=== PATIENT | male | born 1955 | race Hispanic/Latino ===

== ENCOUNTER 2017-12-15 05:58 | Day surgery (SDC) | payer OTHER ==
[2017-12-15] MEDS ORDERED: WATER FOR IRRIG STERILE IR ONE (07:13)
[2017-12-15] MEDS ORDERED: WATER FOR IRRIG STERILE ONE (07:14)
--- NOTE | 2017-12-15 07:27 | Anesthesia Consultation ---
Anesthesia Consult and Med Hx Date of service: 12/15/17 - Airway Anesthetic Teeth Evaluation: Poor (multiple chipped teeth, missing fillings) ROM Head & Neck: Adequate Mental/Hyoid Distance: Adequate Mallampati Class: Class III Intubation Access Assessment: Possibly Difficult - Pre-Operative Health Status ASA Pre-Surgery Classification: ASA3 Proposed Anesthetic Plan: MAC - Pulmonary Hx Smoking: No Hx Asthma: No Hx Sleep Apnea: No - Cardiovascular System Hx Hypertension: Yes Hx Peripheral Vascular Disease: Yes (venous insufficiency LEs) - Central Nervous System Hx Seizures: No CVA: No Hx Psychiatric Problems: No - Gastrointestinal Hx Gastroesophageal Reflux Disease: No - Endocrine Hx Renal Disease: No Hx Liver Disease: No Hx Insulin Dependent Diabetes: Yes (Also takes Metformin) - Hematic Hx Anemia: Yes - Other Systems Hx Alcohol Use: Yes (BEER OCCASIONALLY) Hx Cancer: No Hx Obesity: Yes (BMI 39.5)
--- NOTE | 2017-12-15 07:27 | Anesthesia Day of Surgery ---
Anesthesia Day of Surgery - Day of Surgery Patient Examined: Yes Patient H&P Reviewed: Yes Patient is NPO: Yes Beta Blockers: Yes
[2017-12-15] MEDS ORDERED: DIPRIVAN 10 MG/ML IV ONE ×2 (07:34→07:35)
[2017-12-15] MEDS ORDERED: XYLOCAINE 1% 20 mL ONE (07:36)
[2017-12-15] MEDS ORDERED: NACL 0.9% 1000 ML 1,000 ML IV SCH (08:00)
--- NOTE | 2017-12-15 08:19 | Short Stay Summary ---
Short Stay Documentation - Allergies and Medications Current Medications: Allergies No Known Allergies Allergy (Verified 02/25/16 10:08) Home Medications Medication Instructions Recorded Confirmed Last Taken Type AtorvaSTATin [Lipitor] 20 mg PO QPM 02/19/16 12/15/17 12/14/17 History Carvedilol [Coreg] 25 mg PO BID 02/19/16 12/15/17 09/24/16 History Insulin Glargine [Lantus VIAL] 28 units SQ QHS 02/19/16 12/15/17 12/14/17 History Latanoprost 0.005% [Xalatan 0.005%] 1 drop OP QPM 02/19/16 12/15/17 12/14/17 History Levobunolol 0.5%(Nf) [Betagan (Nf)] 1 drops OP BID 02/19/16 12/15/17 09/23/16 History Lisinopril/Hydrochlorothiazide 1 tab PO QDAY 02/19/16 12/15/17 12/15/17 History [Zestoretic 20-12.5 mg] Metformin HCl [Glucophage] 1,000 mg PO BID 02/19/16 12/15/17 12/14/17 History Spironolactone [Aldactone] 25 mg PO QDAY 02/19/16 12/15/17 12/13/17 History amLODIPine [Norvasc] 10 mg PO QPM 02/19/16 12/15/17 12/14/17 History cloNIDine [Catapres] 0.1 mg PO QPM 02/19/16 12/15/17 12/14/17 History Active Medications Sodium Chloride (Nacl 0.9% 1000 Ml) 1,000 mls @ 50 mls/hr IV DIRECT HELIO Last Admin: 12/15/17 07:39 Dose: 50 mls/hr - Brief post op/procedure progress note Date of procedure: 12/15/17 Pre-op diagnosis: 1. Colon cancer screening 2. History of colon polyps Post-op diagnosis: same (1. Colon polyps 2. Diverticulosis coli 3. Internal hemorrhoids) Procedure: Colonoscopy with cold biopsy polypectomy Anesthesia: MAC Findings: as above Surgeon: ALETA MUJICA Estimated blood loss: none Pathology: list (1. Tranverse colon polyp 2. Descending colon polyp 3. Sigmoid colon polyp) Specimen disposition: to lab Condition: stable - Disposition Condition at discharge: Stable Disposition: [id number] TO HOME OR SELFCARE Short Stay Discharge Plan Activity: no restrictions Weight Bearing Status: Full Weight Bearing Diet: regular Follow up with: AURORA GOFF MD [Primary Care Provider] - 7 Days
[2017-12-15 08:30] VITALS: BP 126/69
--- NOTE | 2017-12-15 09:58 | Post Anesthesia Evaluation ---
- Post Anesthesia Evaluation Patient Participated: Yes Airway Patent: Yes Stable Respiratory Function: Yes Nausea/Vomiting: No Temp > 96.8F: Yes Pain Manageable: Yes Adequeate Hydration: Yes Anesthesia Complications: No Block Receding Appropriately: Not Applicable (2030)
== END 2017-12-15 05:59 | disposition home or self-care (01) ==
LOC: GIO 05:58
PROVIDERS: ATTEND Internal Medicine Gastroenterology
DX: Z12.11 Encounter for screening for malignant neoplasm of colon (principal); D12.5 Benign neoplasm of sigmoid colon; K57.30 Diverticulosis of large intestine without perforation or abscess without bleeding; K64.8 Other hemorrhoids; I10 Essential (primary) hypertension; I73.9 Peripheral vascular disease, unspecified; E11.9 Type 2 diabetes mellitus without complications; E78.5 Hyperlipidemia, unspecified; E66.9 Obesity, unspecified; Z68.39 Body mass index [BMI] 39.0-39.9, adult; Z79.4 Long term (current) use of insulin; Z79.899 Other long term (current) drug therapy
CPT/HCPCS: 45380; 82962; 88305; J2704; J7030